=== PATIENT | female | born 1995 | race Caucasian/White ===

== ENCOUNTER 2019-10-15 12:15 | Day surgery (SDC) | payer OTHER ==
[~2019-10-15] VITALS: Ht 165.1 cm; Wt 58.4 kg
[2019-10-15 12:34] VITALS: BP 115/87; PULSE 86; TEMP 98.2
[2019-10-15 15:00] VITALS: BP 117/81; PULSE 70; TEMP 97.9
--- NOTE | 2019-10-15 15:00 | NUR ---
PATIENT TO RECOVERY BAY 2 POST PROCEDURE VIA CART ACCOMPANIED BY A TEJAS RN AMBULATES TO CHAIR WITH 2 PERSON ASSIST. MILD NAUSEA SOME DIZZINESS. REPORT RECEIVED. COLD WASH CLOTH TO HEAD, MADE COMFORTABLE IN CHAIR, WARM BLANKETS GIVEN. VITAL SIGNS TAKEN, WNL. ZOFRAN GIVEN FOR NAUSEA @ 1521.
[2019-10-15 15:15] VITALS: BP 109/68; PULSE 70
--- NOTE | 2019-10-15 15:15 | NUR ---
PATIENT RESTING IN CHAIR. NAUSEA BETTER BUT STILL MILD. SIPS ON WATER. DR AT BEDSIDE TALKS WITH PATIENT. AMBULATES TO BATHROOM @ 1525 MILD DIZZINESS. BACK TO ROOM PER WHEELCHAIR. GIVEN CRACKERS TO EAT.
[2019-10-15 15:35] VITALS: BP 105/66; PULSE 64
--- NOTE | 2019-10-15 15:35 | NUR ---
PATIENT RESTING IN CHAIR. MILD NAUSEA STILL PRESENT. MUNCHES ON CRACKERS. SIPS ON WATER NO EMESIS.
[2019-10-15 15:45] VITALS: BP 105/63; PULSE 62
--- NOTE | 2019-10-15 15:45 | NUR ---
CONTINUES TO REST IN CHAIR. REPORTS STILL SOME MILD NAUSEA. NO EMESIS. DISCHARGE INSTRUCTIONS GIVEN AND EXPLAINED. SIG OTHER AT BEDSIDE RECEIVING INFORMATION WELL. VERBALIZES UNDERSTANDING. STRESS THAT WILL BE GOOD TO GO HOME AND SLEEP, PATIENT UNDERSTANDS.
[2019-10-15 16:00] VITALS: BP 102/63; PULSE 67
--- NOTE | 2019-10-15 16:00 | NUR ---
PATIENT READY TO GO HOME, CHANGES OUT OF GOWN. IV REMOVED FROM RIGHT HAND. DISCHARGE INSTRUCTIONS IN HAND. BELONGINGS IN HAND. DISCHARGED PER WHEELCHAIR WITH STABLEHAND.
== END 2019-10-15 16:35 | disposition home or self-care (01) ==
LOC: SDCO 12:15
DX: K92.1 Melena (principal); R19.7 Diarrhea, unspecified; K59.00 Constipation, unspecified; Z90.49 Acquired absence of other specified parts of digestive tract
CPT/HCPCS: J2250; J2405; J3010; J7030

== ENCOUNTER 2023-12-15 15:21 | Emergency (ER) | payer OTHER ==
[~2023-12-15] VITALS: Ht 165.1 cm; Wt 60.5 kg
[2023-12-15 15:31] VITALS: TEMP 98.4
[2023-12-15 16:19] LABS: BASO % 0.4 % (0.0-2.0); EOS # 0.1 K/mm3 (0.0-0.7); EOS % 0.8 % (0.0-4.0); GRAN # 6.8 K/mm3 (1.4-6.5); GRAN % 70.5 % (42.2-75.2); HEMATOCRIT 37.2 % (37.0-47.0); HEMOGLOBIN 12.9 g/dl (12.5-16.0); LYMPH % 20.5 % (20.0-51.0); MEAN CELL VOLUME 86 fl (80.0-100.0); MEAN CORPUSCULAR HEMOGLOBIN 30 pg (27-31); MEAN CORPUSCULAR HGB CONC 35 g/dl (33.0-37.0); MEAN PLATELET VOLUME 9.7 fl (7.4-10.4); MONO # 0.7 K/mm3 (0.1-0.6); MONO % 7.5 % (1.7-9.3); PLATELET COUNT 275 K/mm3 (130-400); RED BLOOD COUNT 4.34 M/mm3 (4.10-5.30); REDCELL DISTRIBUTION WIDTH-CV 12.7 % (11.5-14.5)
[2023-12-15 16:39] LABS: ALANINE AMINOTRANSFERASE 20 U/L (0-55); ALBUMIN 3.6 g/dL (3.5-5.0); ALKALINE PHOSPHATASE 41 U/L (40-150); ANION GAP 10 mmol/L (7-16); AST,SGOT 19 U/L (5-34); BILIRUBIN,TOTAL 0.3 mg/dL (0.2-1.2); BLOOD UREA NITROGEN 11 mg/dL (7-19); CALCIUM 9.2 mg/dL (8.4-10.2); CHLORIDE 106 mEq/L (98-107); CREATININE, serum 0.78 mg/dL (0.57-1.11); GLUCOSE 87 mg/dL (70-99); POTASSIUM 3.7 mEq/L (3.5-4.5); SODIUM 137 mEq/L (136-145); TOTAL PROTEIN 6.8 g/dl (6.2-8.1)
[2023-12-15 17:01] LABS: HCG,QUANTITATIVE > 225000 mIU/mL
[2023-12-15 17:34] LABS: URINE APPEARANCE CLEAR (CLEAR/HAZY); URINE BLOOD 3+ (NEGATIVE); URINE COLOR YELLOW (YELLOW); URINE GLUCOSE NEGATIVE (NEGATIVE); URINE KETONE NEGATIVE (NEGATIVE); URINE NITRATE NEGATIVE (NEGATIVE); URINE PROTEIN(semi-quant) NEGATIVE (NEGATIVE); URINE UROBILINOGEN 0.2 E.U/dL (0.2-1.0)
[2023-12-15 17:45] LABS: COLLECTION METHOD CLEAN CATCH
[2023-12-15 19:36] VITALS: BP 119/66; PULSE 78
== END 2023-12-15 19:36 | disposition home or self-care (01) ==
LOC: COL.ER 15:21
PROVIDERS: Emergency Medicine
DX: O20.0 Threatened abortion (principal); Z90.721 Acquired absence of ovaries, unilateral; Z3A.08 8 weeks gestation of pregnancy